=== PATIENT | female | born 1960 | race African-American/Black ===

== ENCOUNTER 2020-12-29 13:12 | Inpatient (IN) | payer OTHER ==
[2020-12-29 14:35] VITALS: BMI 22.5
[2020-12-30] MEDS ORDERED: hydrOXYzine PAMOATE 25 MG CAPSULE (FP) PO PRN (04:10)
[2020-12-30] MEDS ORDERED: ACETAMINOPHEN 325 MG TABLET (FP) PO PRN ×2 (04:10)
[2020-12-30] MEDS ORDERED: MAGNESIUM HYDROX 2400MG/30ML ORAL SUSPENSION 30 ML CUP PO PRN (04:10)
[2020-12-30] MEDS ORDERED: MAG HYDROX/AL HYDROX/SIMETH 30 ML UNIT-DOSE CUP PO PRN (04:10)
[2020-12-30] MEDS ORDERED: DICYCLOMINE HCL 10 MG CAPSULE PO PRN (04:10)
[2020-12-30] MEDS ORDERED: ONDANSETRON *ODT* 4 MG TABLET SL PRN (04:10)
[2020-12-30] MEDS ORDERED: P-EPHED 60MG/TRIPROLIDI 2.5MG TABLET PO PRN (04:10)
[2020-12-30] MEDS ORDERED: METHOCARBAMOL 500 MG TABLET PO PRN (04:10)
[2020-12-30] MEDS ORDERED: BISMUTH SUBSALICYLATE 524 MG/30 ML PO PRN (04:10)
[2020-12-30] MEDS ORDERED: MENTHOL/PHENOL 1 EACH UD MM PRN (04:10)
[2020-12-30] MEDS ORDERED: LORazepam 1 MG TABLET PO PRN (04:10)
[2020-12-30] MEDS ORDERED: guaiFENesin 200 MG/10 ML 10 ML UNIT-DOSE CUPS PO PRN (04:10)
[2020-12-30] MEDS ORDERED: NICOTINE POLACRILEX 2 MG GUM BUC PRN (04:10)
[2020-12-30] MEDS ORDERED: MAGNESIUM CITRATE 300 ML BOTTLE PO PRN (04:10)
[2020-12-30] MEDS ORDERED: IBUPROFEN 400 MG TABLET (FP) PO PRN (04:10)
[2020-12-30] MEDS ORDERED: AZITHROMYCIN 500 MG TABLET PO ONE (04:15)
[2020-12-30] MEDS ORDERED: AZITHROMYCIN 250 MG TABLET PO ONE ×2 (04:45→07:00)
[2020-12-30] MEDS: LORazepam 2 MG TABLET PO SCH ×4 (06:45→23:18)
[2020-12-30 09:50] LABS: HEMATOCRIT 41.7 % (32.4-45.2); HEMOGLOBIN 14.1 GM/dL (10.7-15.3); MCHC 33.9 g/dl (32.0-36.0); MEAN CELL VOLUME 94.5 fl (80-96); MEAN PLT VOLUME 9.4 fl (7.5-11.1); PLATELET COUNT 280 K/MM3 (134-434); RBC 4.41 M/mm3 (3.60-5.2); RDW 13.8 % (11.6-15.6); WHITE BLOOD COUNT 7.6 K/mm3 (4.0-10.0)
[2020-12-30] MEDS ORDERED: NICOTINE 14 MG/24 HOURS TOPICAL PATCH TD SCH (10:00)
[2020-12-30 10:11] LABS: ALBUMIN 3.7 g/dl (3.4-5.0); CALCIUM 8.8 mg/dL (8.5-10.1)
[2020-12-30 10:12] LABS: BLOOD UREA NITROGEN 19.2 mg/dL (7-18)
[2020-12-30 10:14] LABS: CREATININE 1.3 mg/dL (0.55-1.3)
[2020-12-30 10:15] LABS: BILIRUBIN,TOTAL 0.5 mg/dL (0.2-1)
[2020-12-30] MEDS: PRENATAL VITAMINS W/ FOLIC ACID TABLET (FP) PO SCH (10:40)
[2020-12-30] MEDS: NICOTINE 14 MG/24 HOURS TOPICAL PATCH TD SCH (10:40)
[2020-12-30] MEDS: ENALAPRIL MALEATE 10 MG TABLET PO SCH (11:23)
[2020-12-30] MEDS: glyBURIDE 5 MG TABLET PO SCH ×2 (11:23→18:28)
[2020-12-30] MEDS: ATORVASTATIN CA 40 MG TABLET (FP) PO SCH (23:18)
[2020-12-30] MEDS: MELATONIN 5 MG TABLETS PO SCH (23:18)
[2020-12-30] MEDS: BUDESONIDE/FORMETEROL FUMARATE 160/4.5 mcg INHALER IH SCH (23:19)
[2020-12-30] MEDS: THIAMINE HCL 100 MG TABLET (FP) PO SCH (23:19)
[2020-12-31] MEDS: glyBURIDE 5 MG TABLET PO SCH ×2 (06:39→17:40)
[2020-12-31] MEDS: LORazepam 1 MG TABLET PO SCH ×4 (06:39→22:44)
[2020-12-31] MEDS: PRENATAL VITAMINS W/ FOLIC ACID TABLET (FP) PO SCH (10:22)
[2020-12-31] MEDS: ENALAPRIL MALEATE 10 MG TABLET PO SCH (10:22)
[2020-12-31] MEDS: NICOTINE 14 MG/24 HOURS TOPICAL PATCH TD SCH (10:22)
[2020-12-31] MEDS: ASPIRIN COATED 81 MG TABLET.EC PO SCH (10:23)
[2020-12-31] MEDS: BUDESONIDE/FORMETEROL FUMARATE 160/4.5 mcg INHALER IH SCH ×2 (10:23→22:45)
[2020-12-31] MEDS: AZITHROMYCIN 250 MG TABLET PO SCH (10:24)
[2020-12-31] MEDS: THIAMINE HCL 100 MG TABLET (FP) PO SCH (22:45)
[2020-12-31] MEDS: MELATONIN 5 MG TABLETS PO SCH (22:45)
[2020-12-31] MEDS: ATORVASTATIN CA 40 MG TABLET (FP) PO SCH (22:45)
[2021-01-01] MEDS ORDERED: LORazepam 0.5 MG TABLET PO PRN
[2021-01-01 06:07] LABS: SARS-CoV-2 NAA Not Detected (Not Detected)
[2021-01-01] MEDS: LORazepam 0.5 MG TABLET PO SCH ×4 (06:49→22:24)
[2021-01-01] MEDS: glyBURIDE 5 MG TABLET PO SCH ×2 (07:17→17:48)
[2021-01-01] MEDS: PRENATAL VITAMINS W/ FOLIC ACID TABLET (FP) PO SCH (10:13)
[2021-01-01] MEDS: ENALAPRIL MALEATE 10 MG TABLET PO SCH (10:13)
[2021-01-01] MEDS: NICOTINE 14 MG/24 HOURS TOPICAL PATCH TD SCH (10:13)
[2021-01-01] MEDS: BUDESONIDE/FORMETEROL FUMARATE 160/4.5 mcg INHALER IH SCH ×2 (10:14→22:25)
[2021-01-01] MEDS: ASPIRIN COATED 81 MG TABLET.EC PO SCH (10:14)
[2021-01-01] MEDS: AZITHROMYCIN 250 MG TABLET PO SCH (10:14)
[2021-01-01] MEDS: ATORVASTATIN CA 40 MG TABLET (FP) PO SCH (22:24)
[2021-01-01] MEDS: MELATONIN 5 MG TABLETS PO SCH (22:24)
[2021-01-01] MEDS: THIAMINE HCL 100 MG TABLET (FP) PO SCH (22:24)
[2021-01-02] MEDS ORDERED: LORazepam 0.5 MG TABLET PO ONE (05:00)
[2021-01-02] MEDS: glyBURIDE 5 MG TABLET PO SCH (08:51)
[2021-01-02] MEDS: BUDESONIDE/FORMETEROL FUMARATE 160/4.5 mcg INHALER IH SCH (09:08)
[2021-01-02] MEDS: AZITHROMYCIN 250 MG TABLET PO SCH (09:08)
[2021-01-02] MEDS: NICOTINE 14 MG/24 HOURS TOPICAL PATCH TD SCH (09:08)
[2021-01-02] MEDS: ASPIRIN COATED 81 MG TABLET.EC PO SCH (09:08)
[2021-01-02] MEDS: ENALAPRIL MALEATE 10 MG TABLET PO SCH (09:08)
[2021-01-02] MEDS: PRENATAL VITAMINS W/ FOLIC ACID TABLET (FP) PO SCH (09:08)
[2021-01-02 09:11] VITALS: BP 138/81; PULSE 64; TEMP 98.3
== END 2021-01-02 09:36 | disposition home or self-care (01) | DRG 774 ==
LOC: YASAS 13:12 → Y3N 14:54 → UNDOADMIN 14:54 → Y3N 12-30 11:46
PROVIDERS: ADMIT Allergy & Immunology; ATTEND Allergy & Immunology
PROC: HZ2ZZZZ Detoxification Services for Substance Abuse Treatment (ICD-10-PCS; principal; 2020-12-29)
DX: F10.230 Alcohol dependence with withdrawal, uncomplicated (principal); F14.20 Cocaine dependence, uncomplicated; F17.210 Nicotine dependence, cigarettes, uncomplicated; F20.9 Schizophrenia, unspecified; F31.9 Bipolar disorder, unspecified; F41.9 Anxiety disorder, unspecified; J18.9 Pneumonia, unspecified organism; J44.9 Chronic obstructive pulmonary disease, unspecified; J45.909 Unspecified asthma, uncomplicated; K21.9 Gastro-esophageal reflux disease without esophagitis; K57.30 Diverticulosis of large intestine without perforation or abscess without bleeding; E11.9 Type 2 diabetes mellitus without complications; R79.89 Other specified abnormal findings of blood chemistry; Z79.84 Long term (current) use of oral hypoglycemic drugs
CPT/HCPCS: 36415; 71046-TC-FY; 74177-TC; 80053; 82962; 83690; 85025; 85027; 86780; 93005; 93010; 99285-25; C9803; Q9967; U0003; U0005

== ENCOUNTER 2020-12-29 17:59 | Emergency (ER) | payer OTHER ==
[2020-12-29 18:24] VITALS: BMI 24.3
[2020-12-29] MEDS ORDERED: chlordiazePOXIDE HCL 25 MG CAPSULE PO ONE (19:47)
[2020-12-29] MEDS ORDERED: LACTATED RINGERS SOLUTION 1,000 ML IV STA (19:56)
[2020-12-29] MEDS ORDERED: chlordiazePOXIDE HCL 25 MG CAPSULE ONE (20:04)
[2020-12-29] MEDS ORDERED: ACETAMINOPHEN 325 MG TABLET (FP) PO ONE (20:38)
[2020-12-29] MEDS ORDERED: ACETAMINOPHEN 325 MG TABLET (FP) ONE (20:43)
[2020-12-29 20:48] LABS: BASO % 0.6 % (0-2.0); EOS % 1.2 % (0-4.5); HEMATOCRIT 40.6 % (32.4-45.2); HEMOGLOBIN 13.7 GM/dL (10.7-15.3); LYMPH % 21.9 % (8-40); MCH 31.8 pg (25.7-33.7); MCHC 33.7 g/dl (32.0-36.0); MEAN CELL VOLUME 94.4 fl (80-96); MEAN PLT VOLUME 8.5 fl (7.5-11.1); MONO % 16.2 % (3.8-10.2); NEUT % 60.1 % (42.8-82.8); PLATELET COUNT 297 K/MM3 (134-434); RDW 13.8 % (11.6-15.6); WHITE BLOOD COUNT 6.9 K/mm3 (4.0-10.0)
[2020-12-29 20:52] LABS: CALCIUM 8.9 mg/dL (8.5-10.1)
[2020-12-29 20:53] LABS: ALBUMIN 3.5 g/dl (3.4-5.0); BLOOD UREA NITROGEN 19.6 mg/dL (7-18)
[2020-12-29 20:57] LABS: BILIRUBIN,TOTAL 0.6 mg/dL (0.2-1); TOT PROT 8.1 g/dl (6.4-8.2)
[2020-12-30 00:13] VITALS: BP 159/73; PULSE 86; TEMP 97.9
== END 2020-12-30 04:34 | disposition home or self-care (01) ==
LOC: JER 17:59
PROC: 3E0337Z Introduction of Electrolytic and Water Balance Substance into Peripheral Vein, Percutaneous Approach (ICD-10-PCS; principal; 2020-12-29)
DX: F10.20 Alcohol dependence, uncomplicated (principal); F14.20 Cocaine dependence, uncomplicated; R10.11 Right upper quadrant pain
CPT/HCPCS: 36415; 74177-TC; 80053; 83690; 85025; 93005; 93010; 99285-25; Q9967